=== PATIENT | male | born 1990 | race Caucasian/White ===

== ENCOUNTER 2021-04-24 11:44 | Emergency (ER) | payer MEDICAID ==
[~2021-04-24] VITALS: Ht 149.9 cm; Wt 53.0 kg
[2021-04-24] MEDS ORDERED: LIDOCAINE HCL/PF 1% 10 MG/ML 5ML VIAL INFIL ONE (12:15)
[2021-04-24] MEDS ORDERED: TETANUS, DIPHTHERIA, PERTUSSIS VAC/PF 0.5ML (>10YR OLD) IM ONE (12:15)
[2021-04-24] MEDS ORDERED: BACITRACIN ZINC OINT UDPKT TOP ONE (12:15)
[2021-04-24] MEDS ORDERED: IBUPROFEN 600MG TABLET PO ONE (12:15)
[2021-04-24 12:24] VITALS: BP 125/90
[2021-04-24] MEDS ORDERED: CEPH500T PO (13:56)
[2021-04-24] MEDS ORDERED: IBUP-2029 PO (13:56)
== END 2021-04-24 14:08 | disposition home or self-care (01) ==
LOC: ER 11:44
DX: S71.112A Laceration without foreign body, left thigh, initial encounter (principal); W26.8XXA Contact with other sharp object(s), not elsewhere classified, initial encounter; Y93.89 Activity, other specified; Y92.89 Other specified places as the place of occurrence of the external cause; Y99.8 Other external cause status
CPT/HCPCS: 90471; 90715; 99283; A4217; J3490; Z7610

== ENCOUNTER 2021-05-05 18:33 | Emergency (ER) | payer MEDICAID ==
[~2021-05-05] VITALS: Ht 149.9 cm; Wt 59.0 kg
[~2021-05-05 18:33] MED LIST: CEPH500T PO; IBUP-2029 PO
[2021-05-05 18:53] VITALS: BP 108/53
== END 2021-05-05 22:12 | disposition home or self-care (01) ==
LOC: ER 18:33
DX: Z48.02 Encounter for removal of sutures (principal)
CPT/HCPCS: 99281; Z7610